=== PATIENT | female | born 1985 | race Two or more races ===

== ENCOUNTER 2017-09-20 17:51 | Emergency (ER) | payer MEDICAID, OTHER ==
[~2017-09-20] VITALS: Ht 162.6 cm; Wt 61.2 kg
[2017-09-20 18:00] VITALS: BP 106/68
== END 2017-09-20 18:42 | disposition home or self-care (01) ==
LOC: ER 17:52
DX: J03.80 Acute tonsillitis due to other specified organisms (principal)
CPT/HCPCS: 99283; A4606; Z7610